=== PATIENT | male | born 1960 | race Caucasian/White ===

== ENCOUNTER → 2021-12-17 | Outpatient (CLI) | payer OTHER ==
[~2021-12-17] MED LIST: GADOTERATE 5 MMOL/10ML VIAL. INT ART ONE; IOHEXOL 300 MG/ML 50 ML VIAL. INT ART ONE; LIDOCAINE 1% Multi-Dose 20 ML VIAL. ID ONE
--- NOTE | 2021-12-17 09:44 | KCIC ---
EXAM: Right hip joint injection WITH Fluoroscopic guidance DATE: 12/17/2021 8:35 AM CLINICAL HISTORY: Reason: RIGHT HIP PAINX 5-6 MONTHS / Spl. Instructions: FT 0:20, IMG 2, 5ML LIDOCAI NE, 5ML OMNI 300, 10ML SALINE, 0.1ML CLARISCAN / History: DR. GARNER COMPARISON: None pertinent TECHNIQUE: The patient was informed of the indications and alternatives for this procedure as well as risks and benefits. No immediate contraindication identified. The patient provided informed, written consent. Laterality was confirmed by the entire team following a time out. Following initial Right hip joint localization, a suitable area was sterilely prepped and draped. Loc al anesthesia was administered with 1% xylocaine. With intermittent fluoroscopic observation, a 22-ga uge spinal needle was advanced into the Right hip joint sheath/capsule with confirmation of intra-syn ovial position with infusion of less than 1 cc iodinated contrast. Of note, the iliopsoas bursa is ma rkedly distended with contrast opacification of the iliopsoas bursa despite far lateral positioning o f the needle. Subsequent infusion 14 cc's solution containing 10 cc saline, 5 cc lidocaine 1%, 5 cc I sovue and 0.1 cc gadolinium . Hemostasis with local pressure. Local clinical exam negative for immedi ate complication. Patient informed re local potential signs or symptoms that may indicate need to return to ER/Ordering physician for further evaluation. Patient informed re precautionary measures after intra-synovial in jection of anesthetic. Patient expressed understanding. Performing Physicians: Dr. Omaira Garner Blood Loss: 0 cc Total Fluoroscopy time: 20 seconds Total spot images taken: 0 IMPRESSION: Successful intra-synovial injection Right hip joint with gadolinium contrast per clinical request The right iliopsoas bursa is markedly distended with contrast opacification of the iliopsoas bursa de spite far lateral positioning of the needle. Electronically signed by: Sebastien Garner MD (12/17/2021 9:42 AM) [id number]
--- NOTE | 2021-12-17 11:24 | KCIC ---
EXAM: MR arthrogram right hip DATE: 12/17/2021 11:04 AM INDICATION: Reason: RIGHT HIP PAIN / Spl. Instructions: / History: TEAR OF RIGHT ACETABULAR LABRUM, PAIN. COMPARISON: None available. TECHNIQUE: Following intra-articular infusion of dilute gadolinium, multiplanar, multisequence MR delmer ging of the right hip was performed. FINDINGS: Iatrogenic distention of the right hip joint with gadolinium contrast. No synovial nodularity or intr a-articular loose body. Negative fluid distention of the greater trochanteric bursa. There is disten tion of the iliopsoas bursa which is at least partially iatrogenic however based on projection, there was likely pre-existing bursal distention. Mild bursal thickening and irregularity with small internal audit director al septations, possibly symptomatic iliopsoas bursa. Ligaments: Ligamentum teres is intact. Negative nodularity or thickening. Morphology: Normal proximal femoral angle, 134 degrees. Normal acetabular anteversion. Normal alpha angle, 49 degrees. Articular cartilage: Full-thickness cartilage defect of the anterior aspect of the acetabular roof, m easuring about 1.3 cm in AP dimension with associated right acetabular subchondral edema. Acetabular labrum: Free edge of the anterior labrum is mildly irregular likely mild fraying. Fluid cl eft extends through the labral chondral junction at the posterior superior labrum at about 10-11 o'cl ock suspicious for labral tear. Periarticular tendons: Regional tendinous attachments are intact including hamstring, iliopsoas and g luteus medius tendons. Bone marrow: No acute fracture or AVN. Acetabular marrow edema from degenerative KG. Visceral pelvis: Incomplete survey of marginal visceral structures of the pelvis. Grossly normal with out mass lesion or free intraperitoneal fluid. Negative large pelvic wall adenopathy. IMPRESSION: 1. Right hip joint osteoarthritis with chondral effacement superiorly with subchondral edema. 2. Anterior superior labral degeneration/fraying. Small fluid cleft at the posterior superior labral chondral junction fever labral tear although sulcus could have this appearance. 3. Distention of the iliopsoas bursa. Given the gadolinium characteristics this is at least partiall y iatrogenic however given the far lateral injection this likely represents a pre-existing bursa. Mil d internal debris septations are seen, could represent symptomatic bursa. Electronically signed by: Sebastien Garner MD (12/17/2021 11:21 AM) [id number]
== END | disposition home or self-care (01) ==
LOC: KCIC 08:30
PROVIDERS: ATTEND Orthopaedic Surgery
DX: M25.551 Pain in right hip (principal); M16.11 Unilateral primary osteoarthritis, right hip
CPT/HCPCS: 27093; 73719; 77002; A9575; J3490; Q9967